=== PATIENT | male | born 1980 ===

== ENCOUNTER 2019-12-29 05:22 | Inpatient (IN) | payer OTHER ==
[2019-12-26 15:17] VITALS: BMI 23.5
[2019-12-29] MEDS ORDERED: HEPARIN NA (PORCINE) 5,000 UNITS/ML 1ML VIAL ONE (13:13)
[2019-12-29] MEDS ORDERED: BUPIVACAINE LIPOSOME/PF (EXPAREL) 266 MG/20 ML VIAL ONE (13:13)
[2019-12-29] MEDS ORDERED: BUPIVACAINE HCL/PF 0.25% (2.5MG/ML) 10 ML VIAL ONE (13:14)
[2019-12-29] MEDS ORDERED: THROMBIN (BOVINE) 5,000 UNIT VIAL TP ONE ×3 (13:14→16:13)
[2019-12-29] MEDS ORDERED: BENZOIN/ALOE VERA/STORAX/TOLU 58 ML BOTTLE ONE (13:14)
[2019-12-29] MEDS ORDERED: morphine SULFATE/PF 0.5 MG/ML (2cc Syringe - QUVA) ONE (13:38)
[2019-12-29] MEDS ORDERED: SUCCINYLCHOLINE CHLORIDE 200 MG/10 ML SYRINGE ONE (13:39)
[2019-12-29] MEDS ORDERED: MIDAZOLAM HCL 2 MG/2 ML SINGLE DOSE VIAL ONE (14:24)
[2019-12-29] MEDS ORDERED: fentaNYL CITRATE 250 MCG/5 ML VIAL ONE ×3 (14:46→18:24)
[2019-12-29] MEDS ORDERED: VANCOMYCIN 1,000 MG VIAL (RESTRICTED TO ID ONLY) IVPB ONE (15:00)
[2019-12-29] MEDS ORDERED: ceFAZolin SODIUM 1 GM VIAL IVPB ONE ×2 (15:00→17:40)
[2019-12-29] MEDS ORDERED: PROPOFOL 20 ML ONE ×11 (15:06)
[2019-12-29] MEDS ORDERED: ceFAZolin SODIUM 1 GM VIAL ONE ×3 (15:17→17:42)
[2019-12-29] MEDS ORDERED: ONDANSETRON 4 MG/2 ML VIAL ONE (15:18)
[2019-12-29] MEDS ORDERED: VANCOMYCIN 1,000 MG VIAL (RESTRICTED TO ID ONLY) ONE ×2 (15:18)
[2019-12-29] MEDS ORDERED: DEXAMETHASONE SOD PHOSPHATE 4 MG/1 ML VIAL ONE ×3 (15:18)
[2019-12-29] MEDS ORDERED: TRANEXAMIC ACID 1000 MG/10 ML VIAL ONE ×2 (15:18)
[2019-12-29] MEDS ORDERED: KETOROLAC TROMETHAMINE 30 MG/1 ML VIAL ONE (15:18)
[2019-12-29] MEDS ORDERED: NEOSTIGMINE METHYLSULFATE 0.5 MG/1 ML - 10 ML MDV ONE (16:30)
[2019-12-29] MEDS ORDERED: GLYCOPYRROLATE 0.2 MG/1 ML VIAL ONE ×2 (16:30)
--- NOTE | 2019-12-29 17:51 | PN ---
Progress Note (short form) - Note Progress Note: 39M s/p L4-S1 laminectomies, L4-L5 PLIF, & L5-S1 PLIF, L4-S1 posterior instrumented spinal fusion POD #0. -Admit to ICU post-op. -Pain control: NO NSAID's; patient received pre-op intrathecal Duramorph & intra-op paraspinal muscle block w/Exparel & marcaine; OK to use TRICK RODEO RIDER if needed; transition to oral analgesia post-op. -DVT PPx: -Mechanical only: NANY's, SCD's. -Chemical: None. -Incentive spirometry q15 min. -NPO until flatus. -Franco care; d/c when ambulating. -Ancef post-op x 3 doses. -PT/OT/Rehab, OOB. -WBAT B/L LE. -No bending, lifting (>5 lbs), or twisting for 9-12 months. -Care per ICU & medical hospitalist teams. -Discharge planning: Gypsy Hernandez preferred if patient needs rehab; f/u 7-10 days after rehab (or hospital) discharge at [facility] [place] [facility]; call for appointment; . -Will follow. Krishna Kebede MD (Orthopaedic Surgery).
--- NOTE | 2019-12-29 17:53 | OP ---
Operative Note - Note: Operative Date: 12/29/19 Pre-Operative Diagnosis: 1. 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 2. L4-L5 spondylolisthesis (Grade 1 anterolisthesis). 3. L4-S1 spinal stenosis with associated neurogenic claudication. 4. L4-S1 axial instability with associated myofascial pain complex and lumbosacral enthesopathy Operation: 1. L4 laminectomy & bilateral inferior facetectomies. 2. L5 laminectomy & bilateral 0superior and inferior facetectomies. 3. S1 laminectomy & bilateral superior facetectomies. 4. L4-L5 discectomy, PLIF, and posterolateral arthrodesis. 5. L5-S1 discectomy, PLIF, and posterolateral arthrodesis. 6. Insertion intervertebral cage/biomechanical device L4-L5. 7. Insertion intervertebral cage/biomechanical device L5-S1. 8. Reduction of spinal deformity. 9. L4-S1 posterior instrumentation. 10. Bone autograft (morselized). 11. Bone allograft (morselized). 12. Bone marrow aspirate concentrate autograft. 13. Complex wound closure. 14. Fluoroscopy Implants: Cages: RTI Fortilink Tetrafuse. L4-L5 13mm. L5-S1 11mm. Screws: 6.5x45mm x 6 Surgeon: Krishna Kebede Director Compliance: El Kebede Anesthesiologist/PCT: Hoang Bennett Anesthesia: General Specimens Removed: L4-L5, L5-S1 discs Estimated Blood Loss (mls): 1,000 Drains & Tubes with Location: 1 x deep HemoVac & 1 x superficial HemoVac Blood Volume Replaced (mls): 375 (Cell Saver) Fluid Volume Replaced (mls): 2,700 (Crystalloid) Operative Report Dictated: Yes
[2019-12-29] MEDS ORDERED: BUPIVACAINE HCL 0.25% 125 MG/50 ML VIAL NR ONE (18:10)
[2019-12-29] MEDS ORDERED: BUPIVACAINE LIPOSOME/PF (EXPAREL) 266 MG/20 ML VIAL NR ONE (18:10)
[2019-12-29] MEDS ORDERED: ONDANSETRON 4 MG/2 ML VIAL IVPUSH PRN ×2 (19:01→19:03)
[2019-12-29] MEDS ORDERED: PROMETHAZINE HCL 25 MG/1 ML VIAL IVPUSH PRN (19:01)
[2019-12-29] MEDS ORDERED: oxyCODONE HCL 20 MG SUSTAINED ACTING TABLET PO PRN (19:02)
[2019-12-29] MEDS ORDERED: oxyCODONE HCL 5 MG TABLET PO PRN (19:03)
[2019-12-29] MEDS ORDERED: BSS (NA/CA/MG/K) BALANCED SALT SOLUTION OPHTH SOLN 15 ML BOTTLE ONE (19:53)
[2019-12-29] MEDS: LACTATED RINGERS SOLUTION 1,000 ML IV SCH (20:00)
[2019-12-29] MEDS: ACETAMINOPHEN 1000 MG/100 ML VIAL (NON FORMULARY) IVPB SCH (20:30)
[2019-12-29] MEDS ORDERED: ACETAMINOPHEN INJECTION 100 ML IVPB ONE (20:46)
[2019-12-29] MEDS: diazePAM 5 MG TABLET PO PRN (21:22)
--- NOTE | 2019-12-29 22:47 | CONSULT ---
Consultation: REQUESTING PROVIDER: CONSULT REQUEST: We have been asked to medically evaluate this patient for (specify). HISTORY OF PRESENT ILLNESS: 39 yo male with pmh of right sided sciatica and anxiety presents to ICU post op Day 0 from l4-s1 Laminectomies, L4-L5 PLIF, and L5-S1 posterior instumented spin al fusion. Pt post surgery only complaining of slight back pain but no chest pain, shortness of breath, weakness or numbness in extremities. NO overt blood coming out of surgical site or drain. No gas or bowel movements passed yet. PMH: anxiety, sciatica PSH: Right knee arthroscope, l4-s1 Laminectomies, L4-L5 PLIF, and L5-S1 posterior instumented spinal fusion Meds: oxycodone 20mg QD, diazepam 10mg QD PRN Allergies: fish containing food Social: 15 pack history; denies drugs and alcohol use PCP: Does not have PCP REVIEW OF SYSTEMS: GENERAL/CONSTITUTIONAL: No fever or chills. No weakness. HEAD, EYES, EARS, NOSE AND THROAT: Eye irritation. No ear pain or discharge. No sore throat. CARDIOVASCULAR: No chest pain or shortness of breath RESPIRATORY: No cough, wheezing, or hemoptysis. GASTROINTESTINAL: No nausea, vomiting, diarrhea or constipation. GENITOURINARY: No dysuria, frequency, or change in urination. MUSCULOSKELETAL: Slight back pain SKIN: No rash NEUROLOGIC: No headache, vertigo, loss of consciousness, or change in strength/sensation. PHYSICAL EXAMINATION Vital Signs - 24 hr 12/29/19 12/29/19 12/29/19 11:01 19:00 19:15 Temperature 97.1 F L 98.6 F Pulse Rate 71 76 75 Respiratory 16 16 18 Rate Blood Pressure 128/82 137/89 114/85 O2 Sat by Pulse 99 100 100 Oximetry (%) 12/29/19 12/29/19 12/29/19 19:30 19:45 20:00 Temperature Pulse Rate 81 78 73 Respiratory 16 18 16 Rate Blood Pressure 123/79 125/72 125/72 O2 Sat by Pulse 100 100 100 Oximetry (%) 12/29/19 12/29/19 12/29/19 20:15 20:30 20:45 Temperature 98 F Pulse Rate 76 76 74 Respiratory 16 16 16 Rate Blood Pressure 130/84 120/76 122/78 O2 Sat by Pulse 98 98 100 Oximetry (%) 12/29/19 22:25 Temperature 98 F Pulse Rate 55 L Respiratory 16 Rate Blood Pressure 111/80 O2 Sat by Pulse 100 Oximetry (%) GENERAL: Awake, alert, and fully oriented, in no acute distress HEAD: No signs of trauma, normocephalic, atraumatic EYES: PERRLA, EOMI, sclera anicteric, conjunctiva clear ENT: Auricles normal inspection, hearing grossly normal, nares patent with nasal canula placement, oropharynx clear without exudates. Moist mucosa NECK: Normal ROM, supple, no lymphadenopathy, JVD, or masses LUNGS: No distress, speaks full sentences, clear to auscultation bilaterally HEART: Regular rate and rhythm, normal S1 and S2, no murmurs, rubs or gallops, peripheral pulses normal and equal bilaterally. ABDOMEN: Soft, nontender, normoactive bowel sounds. No guarding, no rebound. No masses EXTREMITIES : Normal inspection, Normal range of motion, no edema. No clubbing or cyanosis. 2+ Pulses in bilateral upper and lower ext. NEUROLOGICAL: Cranial nerves II through XII intact. Sensation equal in upper and lower ext. 5/5 muscle strength in upper ext. 4/5 muscle strength in hip flexors. 5/5 in hip extensors. SKIN: Warm, Dry, normal turgor, no rashes or lesions noted Laboratory Results - last 24 hr 12/29/19 12/29/19 10:08 13:58 Blood Type A POSITIVE A POSITIVE Antibody Screen Negative Negative Active Medications Generic Name Dose Route Start Last Admin Trade Name Freq PRN Reason Stop Dose Admin Acetaminophen 1,000 mg 12/30/19 02:00 12/29/19 20:30 Ofirmev Injection - IVPB 12/30/19 18:01 1,000 mg Q8H ANDRIY Administration Diazepam 10 mg 12/29/19 19:02 12/29/19 21:22 Valium - PO 10 mg Q8H PRN Administration MUSCLE SPASMS Fentanyl 50 mcg 12/29/19 19:01 12/29/19 19:20 Sublimaze Injection - IVPUSH 50 mcg [id number] PRN Administration PAIN-PACU ORDER X 4 DOSES ONLY Lactated Ringer's 1,000 mls @ 125 mls/hr 12/29/19 19:15 12/29/19 20:00 Lactated Ringers Solution IV 125 mls/hr ASDIR ANDRIY Administration Cefazolin Sodium 1 gm in 50 mls @ 100 mls/hr 12/29/19 23:00 Ancef 1 Gm Premixed Ivpb - IVPB 12/30/19 11:29 Q6H ANDRIY Ondansetron HCl 4 mg 12/29/19 19:03 Zofran Injection IVPUSH Q6H PRN NAUSEA AND/OR VOMITING Oxycodone HCl 20 mg 12/29/19 19:02 Oxycontin - PO BID PRN PAIN Oxycodone HCl 5 mg 12/29/19 19:03 Roxicodone - PO Q4H PRN PAIN LEVEL 1-5 Oxycodone HCl 10 mg 12/29/19 19:03 Roxicodone - PO Q4H PRN PAIN LEVEL 6-10 Promethazine HCl 12.5 mg 12/29/19 19:01 Phenergan Injection - IVPUSH Q6H PRN NAUSEA-FOR RESCUE AFTER 15 MIN ASSESSMENT/PLAN: Dispo: We will continue to follow the patient. Thank you for this consultative opportunity. 39 yo male post op day 0 from L4-S1 Laminectomies, L4-L5 PLIF, and L5-S1 posterior instumented spinal fusion. Neuro - l4-s1 Laminectomies, L4-L5 PLIF, and L5-S1 posterior instumented spinal fusion - anxiety - pain management: No NSAIDS, received intratehecal duramorph and intra-op paraspinal muscle block w/ exparel and marcaine; transitioned to oral analgesia as per surgical team. Will cont monitoring pain - Pt on per shift change neuro checks per surgical team. Pt currrently neurovascularly intact post surgery. Will cont to monitor - For anxiety pt takes diazepam 10mg at night to help sleep will give if need be Cardiac - Pt BP stable will cont to monitor Resp - pt saturating well on 2L NC will cont to monitor to keep SpO2>95% -Incentive spirometry every 15 min GI: - Pt NPO until flatus will cont to monitor currently no flatus - [facility]- will monitor I/Os - Will d/c when ambulatory Ext - WBAT - no bending lifting >5lbs or twisting for 9-12 months -DVT PPx: -Mechanical only: NANY's, SCD's. -Chemical: None. Visit type - Emergency Visit Emergency Visit: No - New Patient This patient is new to me today: Yes Date on this admission: 12/29/19 - Critical Care Critical Care patient: Yes Total Critical Care Time (in minutes): 36 Critical Care Statement: The care of this patient involved high complexity decision making to prevent further life threatening deterioration of the patient's condition and/or to evaluate & treat vital organ system(s) failure or risk of failure. ATTENDING PHYSICIAN STATEMENT I saw and evaluated the patient. I reviewed the resident's note and discussed the case with the resident. I agree with the resident's findings and plan as documented. SUBJECTIVE: OBJECTIVE: ASSESSMENT AND PLAN:
[2019-12-29] MEDS: CEFAZOLIN 1 GM/D5W 1 GM/50 ML BAG IVPB SCH (22:49)
[2019-12-29] MEDS ORDERED: CEFAZOLIN 1 GM in DEXTROSE 5%-WATER - 50 ML IVPB SCH (23:00)
[2019-12-30] MEDS: ACETAMINOPHEN 1000 MG/100 ML VIAL (NON FORMULARY) IVPB SCH ×3 (01:21→18:21)
[2019-12-30] MEDS: CEFAZOLIN 1 GM/D5W 1 GM/50 ML BAG IVPB SCH ×2 (04:04→11:07)
[2019-12-30 06:19] LABS: HEMATOCRIT 39.1 % (35.4-49); HEMOGLOBIN 13.1 GM/dL (11.7-16.9); MCHC 33.6 g/dl (32.0-35.9); MEAN CELL VOLUME 83.2 fl (80-96); RBC 4.69 M/mm3 (4.00-5.60); RDW 13.3 % (11.9-15.9); WHITE BLOOD COUNT 15.1 K/mm3 (4.0-10.0)
[2019-12-30 06:22] LABS: BLOOD UREA NITROGEN 10.9 mg/dL (7-18); CREATININE 0.9 mg/dL (0.55-1.3); POTASSIUM 4.5 mmol/L (3.5-5.1)
[2019-12-30 06:48] LABS: MAGNESIUM 1.6 mg/dL (1.8-2.4); PHOSPHOROUS 4.1 mg/dL (2.5-4.9)
[2019-12-30] MEDS ORDERED: MAGNESIUM SULF 50% (8.12 MEQ/2 ML-1 GM VIAL) IVPB ONE (07:36)
--- NOTE | 2019-12-30 07:38 | OP ---
DATE OF OPERATION: DATE OF DICTATION: 12/29/2019 SURGEON: Krishna Kebede MD PROCESSING MANAGER: El Kebede MD PREOPERATIVE DIAGNOSIS: Spinal stenosis due to disk prolapse at L4-L5, L5-S1, with associated kyphosis and segmental instability. POSTOPERATIVE DIAGNOSIS: Spinal stenosis due to disk prolapse at L4-L5, L5-S1, with associated kyphosis and segmental instability. OPERATION PERFORMED: 1. L3 bilateral laminectomies and facetectomies. (33122-65-76) 2. L4 bilateral laminectomies and facetectomies. (01302-48-15) 3. L5 bilateral laminectomies and facetectomies. (73887-90-23) 4. S1 bilateral laminectomies and facetectomies. (97321-06-02) 5. L3-L4 posterior lumbar interbody fusion (PLIF) & posterior/lateral arthrodesis. (83046-35) 6. L4-L5 posterior lumbar interbody fusion (PLIF) & posterior/lateral arthrodesis. (08159-95) 7. L5-S1 posterior lumbar interbody fusion (PLIF) & posterior/lateral arthrodesis. (02586-44) 8. L3-L4 insertion biomechanical device/interbody cage. (77665) 9. L4-L5 insertion biomechanical device/interbody cage. (94628) 10. L5-S1 insertion biomechanical device/interbody cage. (28028) 11. L3-S1 bilateral posterior segmental instrumentation. (67583-35-39, technically challenging) 12. Deformity correction; shinto of lordosis. (58180) 13. Morselized bone autograft. (94700) 14. Morselized bone allograft. (27955) 15. Bone marrow aspiration for bone grafting; autograft. (56972) 16. Complex wound closure, 4 layers, 20cm. (66565 x 3) 17. Fluoroscopy. (39378-64) ANESTHESIA: General. ANTIBIOTICS GIVEN: Ancef 2 g, 1 g vancomycin preoperative; 1 g Kefzol given intraoperatively at the time of instrumentation. BLOOD LOSS: Approximately 800 mL, 300 mL Cell Saver given back. INDICATION: Intractable right-sided L5-S1 radiculopathy with associated segment instability of L4, L5, S1, failed conservative treatment. OPERATION DETAILS: Patient correctly identified, brought into the operating room. Lumbar spine was prepped, draped in a routine manner with Betadine scrub solution, wiped off with alcohol and DuraPrep applied. Imaging was available for intraoperative evaluation. Timeout was called. A window drape was applied over the lumbar spine. A preoperative dose of Duramorph was given by the anesthesia team, (i.e., spinal anesthetic approach), and Exparel was given into the muscle both left- and right-hand side at the end of the procedure intraoperatively. In a prone position, all bony points were padded, eyes were protected. The position of the pelvis was extended to as much as we could possibly do to augment his corrective alignment for the deformity of kyphosis at the lumbar spine. Midline incision utilized. The exposure from the tip of the spinous process of L3 to the tip of the spinous process of S2. For clarity purposes, the left mobile segment I am calling L5 on S1. A separate ostial dissection was utilized, exposing the spinous process of the lamina over the facet joints out to the tip of the transverse process with the muscle retracted laterally, the interspinous space packed with sponges to create an adequate space for bone graft later. Hemostasis was achieved as best we could. TXA was instilled into the patient following incision because of the ooze and bleeding accordingly. A repeat dose of tranexamic acid was given at the end of the procedure. Verification of the level was with Jay placement at the interspinous processes of what we call L4-L5. The appropriate dissection then ensued. A full laminectomy of L4, L5 and partial S1 performed. The theca was constricted and stenosed. The stenosis was freed of all the elements, and intraoperative neural improvement of the right side at L5-S1 was reported. The dissection included longitudinal osteotomies splitting the pars interarticularis and the inferior facet at each level at L4 and L5 to expose the S1 facet, and this with retraction of the theca enabled easy resection of the superior facets at this level, thus completing the superior facetectomy of L4-L5. The theca was then gently retracted from right to left. The cages were seated from the right-hand side, as the original pain was on the right-hand side. The nerve roots were clearly identified and found to be completely free both left- and right-hand side through the exiting foramina. The theca retraction enabled easy access to the disks of L4-L5 and L5-S1, bipolar diathermy enabled us to control all epidural bleeding, giving clear visualization of the disks. An elliptical annulectomy was performed at each level, and each disk was shaved using the precision instrumentation. Shaving at L4-L5 was to size 12, and shaving at L5-S1 was to size 11. Serrated curets ensured that all disk material was removed. The chu facilitated fragmentation of the disk; this was completely removed using pituitary rongeurs, right to endplate bleeding bone. Once this had been performed, the bone that had been harvested from the posterior elements was milled in a [employer] mill and packed into the interbody space at L4-L5 and L5-S1, thus completing the anterior bone grafting of L4-L5 and L5-S1. To enable and maintain interbody disk height space to reduce the deformity, Fortilink cages were inserted from the right-hand side at L4-L5 to size 13, that is press-fitted into position as was at L5-S1, where an 11-mm shaver was utilized, press-fitting this appropriately. The wounds were thoroughly lavaged throughout the procedure. No complications in insertion of the cages. The dura remained sealed. Through the open wound but through a different approach, that is through the posterior thoracodorsal fascia, a Jamshidi needle was passed onto the posterior ilium, tapped gently into the bone bed and 60 mL of bone marrow was aspirated, spun down for the CD34 cells, this together with PRP material was mixed with fibrillar allograft and mixed with the remaining autograft bone to provide a complete composite of compliant auto allograft with stem cells, using mesenchymal stem cells. The pedicle screw instrumentation was then performed using biplane fluoroscopy and anatomical guidelines. The pedicles of L4, L5, S1 were identified, 4.5 drill into each pedicle. This brought about and visualized on lateral fluoroscopic x-ray excellent positioning of all screws. These were 6 x 45 mm precision instrumentation screws. Each screw was tested, well above the safe parameter protocol numbers, that is well above 10 mA. In fact, on the left there was above 20, and on the right L5-S1 were 16 and L4 was at 20. Once the screws had been seated and realigned, the tulips realigned, 65 mm rods were contoured using the moran device; this also facilitated correction of the deformity. This was placed into the tulips both left- and right-hand side and the appropriate locking caps inserted. This provided a solid posterior instrumentation of L4, L5, S1. Once this had been performed, the muscle was gently retracted. All sponges removed. The lateral x-ray revealed excellent seating of the implants as did the AP x- ray. The bone grafting and posterolateral arthrodesis L4, L5, S1 left- and right-hand side, was completed. The bone was packed into the intertransverse plane. The wounds were thoroughly lavaged. Muscle was appropriate debrided and trimmed. The closure was in 4 layers, thus completing a complex wound closure of approximately 20 cm. The closure was muscle 1 Vicryl, fascia 1 Vicryl, subcutaneous 1 and 2-0 Vicryl, skin 3-0 Monocryl with Steri-Strips. Drainage 1-inch Hemovac, a 10-Indonesian 1 deep and 1 superficial inserted, this because of the gentle ooze throughout the procedure. Operation went extremely well. No complications. For appropriate nursing in the ICU. MD MALIK Callahan/[id number] MTDD
[2019-12-30 07:44] LABS: MEAN PLT VOLUME 9.7 fl (7.5-11.1); PLATELET COUNT 141 K/MM3 (134-434)
[2019-12-30] MEDS ORDERED: MAGNESIUM SULF 50% (8.12 MEQ/2 ML-1 GM VIAL) ONE (07:53)
[2019-12-30] MEDS: oxyCODONE HCL 5 MG TABLET PO PRN ×3 (09:45→21:12)
[2019-12-30] MEDS: MUPIROCIN 2% TOPICAL OINTMENT FOR DECOLONIZATION NS SCH ×2 (09:49→21:13)
--- NOTE | 2019-12-30 10:49 | PN ---
Teaching Attending Note Name of Resident: Sanjiv Ponce ATTENDING PHYSICIAN STATEMENT I saw and evaluated the patient. I reviewed the resident's note and discussed the case with the resident. I agree with the resident's findings and plan as documented. SUBJECTIVE: Pt seen and examined in the ICU. Pain relatively controlled. No nausea/vomiting. No flatus yet. Wants to get OOB. OBJECTIVE: Vital Signs Period Temp Pulse Resp BP Sys/Sánchez Pulse Ox Last 24 Hr 97.1 F-98.6 F 55-81 9-18 100-137/68-89 98-100 Intake & Output 12/27/19 12/28/19 12/29/19 12/30/19 23:59 23:59 23:59 23:59 Intake Total 3475 1180 Output Total 1500 1300 Balance 1974 - Gen: NAD at rest Heart: RRR Lung: decreased breath sounds at the bases Abd: soft, nontender Ext: no edema CBC, BMP 12/30/19 05:15 12/30/19 05:15 Active Medications Acetaminophen (Ofirmev Injection -) 1,000 mg IVPB Q8H [facility] Stop: 12/30/19 18:01 Last Admin: 12/30/19 01:21 Dose: 1,000 mg Documented by: Chlorhexidine Gluconate (Hibiclens For Decolonization -) 1 applic TP HS [facility] Diazepam (Valium -) 10 mg PO Q8H PRN PRN Reason: MUSCLE SPASMS Last Admin: 12/29/19 21:22 Dose: 10 mg Documented by: Fentanyl (Sublimaze Injection -) 50 mcg IVPUSH [id number] PRN PRN Reason: PAIN-PACU ORDER X 4 DOSES ONLY Last Admin: 12/29/19 19:20 Dose: 50 mcg Documented by: Lactated Ringer's (Lactated Ringers Solution) 1,000 mls @ 125 mls/hr IV ASDIR [facility] Last Admin: 12/29/19 20:00 Dose: 125 mls/hr Documented by: Cefazolin Sodium (Ancef 1 Gm Premixed Ivpb -) 1 gm in 50 mls @ 100 mls/hr IVPB Q6H [facility] Stop: 12/30/19 11:29 Last Admin: 12/30/19 04:04 Dose: 100 mls/hr Documented by: Mupirocin (Bactroban Ointment (For Decolonization) -) 1 applic NS BID ANDRIY Stop: 01/04/20 09:59 Last Admin: 12/30/19 09:49 Dose: 1 applic Documented by: Ondansetron HCl (Zofran Injection) 4 mg IVPUSH Q6H PRN PRN Reason: NAUSEA AND/OR VOMITING Oxycodone HCl (Oxycontin -) 20 mg PO BID PRN PRN Reason: PAIN Oxycodone HCl (Roxicodone -) 5 mg PO Q4H PRN PRN Reason: PAIN LEVEL 1-5 Oxycodone HCl (Roxicodone -) 10 mg PO Q4H PRN PRN Reason: PAIN LEVEL 6-10 Last Admin: 12/30/19 09:45 Dose: 10 mg Documented by: Promethazine HCl (Phenergan Injection -) 12.5 mg IVPUSH Q6H PRN PRN Reason: NAUSEA-FOR RESCUE AFTER 15 MIN ASSESSMENT AND PLAN: Lumbar Spinal Stenosis with Radiculopathy and Neurogenic Claudication s/pL4 laminectomy & bilateral inferior facetectomies/L5 laminectomy & bilateral superior and inferior facetectomies/S1 laminectomy & bilateral superior facetectomies/L4-L5 discectomy, PLIF, and posterolateral arthrodesis/L5-S1 discectomy, PLIF, and posterolateral arthrodesis/Insertion intervertebral cage/biomechanical device L4-L5/Insertion intervertebral cage/biomechanical device L5-S1 - pain control - incentive spirometry - PO/activity/pratt per surgery - DVT prophylaxis
--- NOTE | 2019-12-30 12:32 | PN ---
Physical Exam: SUBJECTIVE: Patient seen and examined. No overnight events. Has not passed flatus. Pain is controlled with medications. Patient is anxious. OBJECTIVE: Vital Signs Period Temp Pulse Resp BP Sys/Sánchez Pulse Ox Last 24 Hr 98 F-98.6 F 55-81 9-18 100-137/68-89 98-100 GENERAL: Awake, alert, and fully oriented, anxious HEENT: head NC, AT, PERRL, MMM LUNGS: Breath sounds equal, clear to auscultation bilaterally. No wheezes, and no crackles. No accessory muscle use. HEART: Regular rate and rhythm, normal S1 and S2 without murmur, rub or gallop. ABDOMEN: obese Soft, nontender, not distended, normoactive bowel sounds, no guarding, no rebound EXTREMITIES: 2+ DP/TP pulses, warm, well-perfused. No cyanosis. No clubbing. Cap refill <2 seconds. No peripheral edema. b/l UE & LE strength 5/5, sensation intact NEUROLOGICAL: Cranial nerves II through XII intact. Normal speech. gait not assessed PSYCHIATRIC: Cooperative. Good eye contact. Appropriate mood and affect. Laboratory Results - last 24 hr 12/29/19 12/30/19 12/30/19 13:58 05:15 05:15 WBC 15.1 H RBC 4.69 Hgb 13.1 Hct 39.1 MCV 83.2 MCH 28.0 MCHC 33.6 RDW 13.3 Plt Count 141 MPV 9.7 Platelet Comment No clumping noted Sodium 140 Potassium 4.5 Chloride 106 Carbon Dioxide 30 Anion Gap 4 L BUN 10.9 Creatinine 0.9 Est GFR (CKD-EPI)AfAm 125.13 Est GFR (CKD-EPI)NonAf 107.97 Random Glucose 127 H Calcium 8.0 L Phosphorus 4.1 Magnesium 1.6 L Blood Type A POSITIVE Antibody Screen Negative Active Medications Generic Name Dose Route Start Last Admin Trade Name Freq PRN Reason Stop Dose Admin Acetaminophen 1,000 mg 12/30/19 02:00 12/30/19 11:07 Ofirmev Injection - IVPB 12/30/19 18:01 1,000 mg Q8H ANDRIY Administration Chlorhexidine Gluconate 1 applic 12/30/19 22:00 Hibiclens For Decolonization - TP HS ANDRIY Diazepam 10 mg 12/29/19 19:02 12/29/19 21:22 Valium - PO 10 mg Q8H PRN Administration MUSCLE SPASMS Fentanyl 50 mcg 12/29/19 19:01 12/29/19 19:20 Sublimaze Injection - IVPUSH 50 mcg [id number] PRN Administration PAIN-PACU ORDER X 4 DOSES ONLY Lactated Ringer's 1,000 mls @ 125 mls/hr 12/29/19 19:15 12/29/19 20:00 Lactated Ringers Solution IV 125 mls/hr ASDIR ANDRIY Administration Mupirocin 1 applic 12/30/19 10:00 12/30/19 09:49 Bactroban Ointment (For Decolonization) - NS 01/04/20 09:59 1 applic BID ANDRIY Administration Ondansetron HCl 4 mg 12/29/19 19:03 Zofran Injection IVPUSH Q6H PRN NAUSEA AND/OR VOMITING Oxycodone HCl 20 mg 12/29/19 19:02 Oxycontin - PO BID PRN PAIN Oxycodone HCl 5 mg 12/29/19 19:03 Roxicodone - PO Q4H PRN PAIN LEVEL 1-5 Oxycodone HCl 10 mg 12/29/19 19:03 12/30/19 09:45 Roxicodone - PO 10 mg Q4H PRN Administration PAIN LEVEL 6-10 Promethazine HCl 12.5 mg 12/29/19 19:01 Phenergan Injection - IVPUSH Q6H PRN NAUSEA-FOR RESCUE AFTER 15 MIN ASSESSMENT/PLAN: 39 YO PMH anxiety and R-sided sciatca presents to ICU for observation POD#1 for L4-S1 Laminectomies, L4-L5 PLIF, and L5-S1 posterior instrumented spinal fusion. Neuro #L4-S1 Laminectomies, L4-L5 PLIF, and L5-S1 posterior instrumented spinal fusion. -per Ortho note, NO NSAID's; oxycodone for pain # anxiety -diazepam 10 mg PRN Cardio - no active issues -will continue to monitor PULM -keep SpO2>95% -Encourage Incentive spirometry GI -NPO until flatus occurs -no flatus yet per patient - Pratt care in place - dc pratt once pt is ambulating -3475 I's/ 1500 O's/ 1975 Balance ID s/p Ancef 3 doses Ext - WBAT - no bending lifting >5lbs or twisting for 9-12 months DVT PPX -Mechanical only: NANY's, SCD's. -Chemical: None. Visit type - Emergency Visit Emergency Visit: Yes ED Registration Date: 12/29/19 Care time: The patient presented to the Emergency Department on the above date and was hospitalized for further evaluation of their emergent condition. - New Patient This patient is new to me today: No - Critical Care Critical Care patient: No ATTENDING PHYSICIAN STATEMENT I saw and evaluated the patient. I reviewed the resident's note and discussed the case with the resident. I agree with the resident's findings and plan as documented. SUBJECTIVE: OBJECTIVE: ASSESSMENT AND PLAN:
--- NOTE | 2019-12-30 13:56 | PN ---
Progress Note (short form) - Note Progress Note: Anesthesiologist post op note POD#1, S/P L4-S1 laminectomy , PLIF under GETA. Pat seen and examined. VSS. Pain well controlled, PO and iv meds by primary team. No apparent post anesthesia complications.
--- NOTE | 2019-12-30 17:35 | PN ---
Progress Note (short form) - Note Progress Note: POD#1 In ICU Pain well controlled Sat in chair No leg pain CVS Stable RESP AE bilaterally ABD SOft No B/S as yet Wound dressing intact and dry Drains insitu Neuro Motor Fully intact Sensation Fully intact Labs WCC elevated 14 ASSESS POst L4/5/S1 laminectomy fusion Doing well PLAN Continue pain MX PT start mobilizing FWBAT Will pull drains tomorrow D/C planning
[2019-12-30] MEDS: diazePAM 5 MG TABLET PO PRN (18:20)
[2019-12-30] MEDS: CHLORHEXIDINE GLUCONATE 4% CLEANSER FOR DECOLONIZATION TP SCH (21:14)
[2019-12-30] MEDS: LACTATED RINGERS SOLUTION 1,000 ML IV SCH (21:27)
[2019-12-31] MEDS: oxyCODONE HCL 5 MG TABLET PO PRN ×6 (03:43→23:54)
[2019-12-31] MEDS ORDERED: ACETAMINOPHEN 1000 MG/100 ML VIAL (NON FORMULARY) IVPB ONE (04:01)
[2019-12-31] MEDS: LACTATED RINGERS SOLUTION 1,000 ML IV SCH ×2 (06:26→14:26)
[2019-12-31 06:41] LABS: HEMATOCRIT 39.1 % (35.4-49); MCH 27.7 pg (25.7-33.7); MCHC 33.4 g/dl (32.0-35.9); MEAN CELL VOLUME 82.9 fl (80-96); PLATELET COUNT 124 K/MM3 (134-434); RBC 4.72 M/mm3 (4.00-5.60); RDW 13.2 % (11.9-15.9); WHITE BLOOD COUNT 14.4 K/mm3 (4.0-10.0)
[2019-12-31 07:09] LABS: ALBUMIN 3.2 g/dl (3.4-5.0); BILIRUBIN,TOTAL 0.6 mg/dL (0.2-1); BLOOD UREA NITROGEN 9.6 mg/dL (7-18); CALCIUM 8.2 mg/dL (8.5-10.1); CREATININE 0.7 mg/dL (0.55-1.3); PHOSPHOROUS 2.9 mg/dL (2.5-4.9); POTASSIUM 3.8 mmol/L (3.5-5.1); TOT PROT 5.9 g/dl (6.4-8.2)
[2019-12-31] MEDS ORDERED: PT OWN MED DRAWER 7, Y5N ONE ×2 (09:53→11:49)
--- NOTE | 2019-12-31 11:43 | PN ---
Teaching Attending Note Name of Resident: Sanjiv Ponce ATTENDING PHYSICIAN STATEMENT I saw and evaluated the patient. I reviewed the resident's note and discussed the case with the resident. I agree with the resident's findings and plan as documented. SUBJECTIVE: Pt seen and examined in the ICU. Pain relatively controlled. No nausea/vomiting. No flatus yet. Walked with PT. OBJECTIVE: Vital Signs Period Temp Pulse Resp BP Sys/Sánchez Pulse Ox Last 24 Hr 97.6 F-99.5 F 64-83 16-27 105-123/65-90 96-100 Intake & Output 12/28/19 12/29/19 12/30/19 12/31/19 23:59 23:59 23:59 23:59 Intake Total 3475 2580 Output Total 1500 4850 20 Balance 1974 Gen: NAD at rest Heart: RRR Lung: decreased breath sounds at the bases Abd: soft, nontender Ext: no edema CBC, BMP 12/31/19 05:15 12/31/19 05:15 Active Medications Chlorhexidine Gluconate (Hibiclens For Decolonization -) 1 applic TP HS [facility] Last Admin: 12/30/19 21:14 Dose: 1 applic Documented by: Diazepam (Valium -) 10 mg PO Q8H PRN PRN Reason: MUSCLE SPASMS Last Admin: 12/30/19 18:20 Dose: 10 mg Documented by: Fentanyl (Sublimaze Injection -) 50 mcg IVPUSH [id number] PRN PRN Reason: PAIN-PACU ORDER X 4 DOSES ONLY Last Admin: 12/29/19 19:20 Dose: 50 mcg Documented by: Lactated Ringer's (Lactated Ringers Solution) 1,000 mls @ 125 mls/hr IV ASDIR [facility] Last Admin: 12/31/19 06:26 Dose: 125 mls/hr Documented by: Mupirocin (Bactroban Ointment (For Decolonization) -) 1 applic NS BID [facility] Stop: 01/04/20 09:59 Last Admin: 12/30/19 21:13 Dose: 1 applic Documented by: Nicotine (Nicoderm Patch -) 21 mg TD DAILY [facility] Ondansetron HCl (Zofran Injection) 4 mg IVPUSH Q6H PRN PRN Reason: NAUSEA AND/OR VOMITING Oxycodone HCl (Oxycontin -) 20 mg PO BID PRN PRN Reason: PAIN Oxycodone HCl (Roxicodone -) 5 mg PO Q4H PRN PRN Reason: PAIN LEVEL 1-5 Last Admin: 12/31/19 00:26 Dose: 5 mg Documented by: Oxycodone HCl (Roxicodone -) 10 mg PO Q4H PRN PRN Reason: PAIN LEVEL 6-10 Last Admin: 12/31/19 08:14 Dose: 10 mg Documented by: Promethazine HCl (Phenergan Injection -) 12.5 mg IVPUSH Q6H PRN PRN Reason: NAUSEA-FOR RESCUE AFTER 15 MIN ASSESSMENT AND PLAN: Lumbar Spinal Stenosis with Radiculopathy and Neurogenic Claudication s/pL4 laminectomy & bilateral inferior facetectomies/L5 laminectomy & bilateral superior and inferior facetectomies/S1 laminectomy & bilateral superior facet ectomies/L4-L5 discectomy, PLIF, and posterolateral arthrodesis/L5-S1 discectomy, PLIF, and posterolateral arthrodesis/Insertion intervertebral cage/biomechanical device L4-L5/Insertion intervertebral cage/biomechanical device L5-S1 - pain control - incentive spirometry - PO/activity per surgery - DVT prophylaxis
--- NOTE | 2019-12-31 11:43 | PN ---
Physical Exam: SUBJECTIVE: Patient seen and examined. 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 Overnight, patient had pain, which improved with ofiramev. 20 cc's in Davol drain in past 2 days; was just drained today. Has not passed flatus or had BM. Denies N/V. Patient is anxious. OBJECTIVE: Vital Signs Period Temp Pulse Resp BP Sys/Sánchez Pulse Ox Last 24 Hr 97.6 F-99.5 F 64-83 16-27 105-123/65-90 96-100 GENERAL: Awake, alert, and fully oriented, anxious HEENT: head NC, AT, PERRL, MMM LUNGS: Breath sounds equal, clear to auscultation bilaterally. No wheezes, and no crackles. No accessory muscle use. HEART: Regular rate and rhythm, normal S1 and S2 without murmur, rub or gallop. ABDOMEN: obese Soft, nontender, not distended, normoactive bowel sounds, no guarding, no rebound EXTREMITIES: 2+ DP/TP pulses, warm, well-perfused. No cyanosis. No clubbing. Cap refill <2 seconds. No peripheral edema. b/l UE & LE strength 5/5, sensation intact NEUROLOGICAL: Cranial nerves II through XII intact. Normal speech. gait not assessed PSYCHIATRIC: Cooperative. Good eye contact. Appropriate mood and affect. Laboratory Results - last 24 hr 12/31/19 12/31/19 05:15 05:15 WBC 14.4 H RBC 4.72 Hgb 13.0 Hct 39.1 MCV 82.9 MCH 27.7 MCHC 33.4 RDW 13.2 Plt Count 124 L MPV 10.0 Sodium 139 Potassium 3.8 Chloride 104 Carbon Dioxide 28 Anion Gap 7 L BUN 9.6 Creatinine 0.7 Est GFR (CKD-EPI)AfAm 138.75 Est GFR (CKD-EPI)NonAf 119.71 Random Glucose 110 H Calcium 8.2 L Phosphorus 2.9 Magnesium 2.0 Total Bilirubin 0.6 AST 80 H ALT 37 Alkaline Phosphatase 79 Total Protein 5.9 L Albumin 3.2 L Active Medications Generic Name Dose Route Start Last Admin Trade Name Freq PRN Reason Stop Dose Admin Chlorhexidine Gluconate 1 applic 12/30/19 22:00 12/30/19 21:14 Hibiclens For Decolonization - TP 1 applic HS ANDRIY Administration Diazepam 10 mg 12/29/19 19:02 12/30/19 18:20 Valium - PO 10 mg Q8H PRN Administration MUSCLE SPASMS Fentanyl 50 mcg 12/29/19 19:01 12/29/19 19:20 Sublimaze Injection - IVPUSH 50 mcg [id number] PRN Administration PAIN-PACU ORDER X 4 DOSES ONLY Lactated Ringer's 1,000 mls @ 125 mls/hr 12/29/19 19:15 12/31/19 06:26 Lactated Ringers Solution IV 125 mls/hr ASDIR ANDRIY Administration Mupirocin 1 applic 12/30/19 10:00 12/30/19 21:13 Bactroban Ointment (For Decolonization) - NS 01/04/20 09:59 1 applic BID ANDRIY Administration Nicotine 21 mg 12/31/19 10:45 Nicoderm Patch - TD DAILY ANDRIY Ondansetron HCl 4 mg 12/29/19 19:03 Zofran Injection IVPUSH Q6H PRN NAUSEA AND/OR VOMITING Oxycodone HCl 20 mg 12/29/19 19:02 Oxycontin - PO BID PRN PAIN Oxycodone HCl 5 mg 12/29/19 19:03 12/31/19 00:26 Roxicodone - PO 5 mg Q4H PRN Administration PAIN LEVEL 1-5 Oxycodone HCl 10 mg 12/29/19 19:03 12/31/19 08:14 Roxicodone - PO 10 mg Q4H PRN Administration PAIN LEVEL 6-10 Promethazine HCl 12.5 mg 12/29/19 19:01 Phenergan Injection - IVPUSH Q6H PRN NAUSEA-FOR RESCUE AFTER 15 MIN ASSESSMENT/PLAN: 39 YO PMH anxiety and R-sided sciatca presents to ICU for observation POD#2 for L4-S1 Laminectomies, L4-L5 PLIF, and L5-S1 posterior instrumented spinal fusion. Neuro #L4-S1 Laminectomies, L4-L5 PLIF, and L5-S1 posterior instrumented spinal fusion. -per Ortho note, NO NSAID's; oxycodone for pain # anxiety -diazepam 10 mg PRN Cardio - no active issues -will continue to monitor PULM -keep SpO2>95% -Encourage Incentive spirometry GI -NPO until flatus occurs -no flatus yet per patient Renal -BUN/Cr 9.6/0.7 - 2580 I's/ 4850 O's/ -2270 Balance Heme #Leukocytosis -WBC trended down from 15.1 to 14.4. -likely reactive #thrombocytopenia: platelets decreased from 141 to 124. will continue to monitor with CBC ID s/p Ancef 3 doses Ext - WBAT - no bending lifting >5lbs or twisting for 9-12 months DVT PPX -Mechanical only: NANY's, SCD's. -Chemical: None. Visit type - Emergency Visit Emergency Visit: Yes ED Registration Date: 12/29/19 Care time: The patient presented to the Emergency Department on the above date and was hospitalized for further evaluation of their emergent condition. - New Patient This patient is new to me today: No - Critical Care Critical Care patient: No ATTENDING PHYSICIAN STATEMENT I saw and evaluated the patient. I reviewed the resident's note and discussed the case with the resident. I agree with the resident's findings and plan as documented. SUBJECTIVE: OBJECTIVE: ASSESSMENT AND PLAN:
[2019-12-31] MEDS: NICOTINE 21 MG/24 HOURS TOPICAL PATCH TD SCH (11:51)
[2019-12-31] MEDS: MUPIROCIN 2% TOPICAL OINTMENT FOR DECOLONIZATION NS SCH ×2 (11:57→21:09)
--- NOTE | 2019-12-31 15:27 | PN ---
Progress Note (short form) - Note Progress Note: Surgery: Pt states that he is tolerating clears. No flatus. OOB and ambulated in the hallway today. No numbness or tingling to LE. Voiding without difficulty. Vital Signs Period Temp Pulse Resp BP Sys/Sánchez Pulse Ox Last 24 Hr 97.6 F-99.5 F 64-83 16-27 105-127/65-90 96-100 KERVIN: 20ml serosangrenous GEN: A&0x3, NAD Back: dressing c/d/i. operative dressing pulled back slightly to remove the drain and reinforced with tegaderm. Neuro: 5/5 dorsi/plantar/EHL flexion b/l CBC, BMP /16/ 05:15 16/ 05:15 A/p: 39 yo male s/p L4-S1 disectomy/laminectomy with PLIF and Cage placement. POD#2 continue sips of clears/stool softners OOB and ambulate with PT/assistance Pain managment with oral medications Drain removed today DVT ppx with SCDs/ambulation Transfer to the floor Sanding tylenol 650mg Q6h x 6 doses D/w Dr. Kebede
[2019-12-31] MEDS ORDERED: LACTATED RINGERS SOLUTION 1,000 ML IV SCH (15:33)
--- NOTE | 2019-12-31 15:37 | HOSP ---
Physical Examination Vital Signs: Vital Signs Temperature 98.9 F 12/31/19 11:52 Pulse Rate 82 12/31/19 14:00 Respiratory Rate 18 12/31/19 14:00 Blood Pressure 117/82 12/31/19 14:00 O2 Sat by Pulse Oximetry (%) 100 12/31/19 08:56 Labs: CBC, BMP 12/31/19 05:15 12/31/19 05:15 Hospitalist Encounter Assessment: Patient is a 39 YO PMH anxiety and R-sided sciatca presents to ICU for observation POD#2 for L4-S1 Laminectomies, L4-L5 PLIF, and L5-S1 posterior instrumented spinal fusion. His preoperative diagnosis is 1. 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 2. L4- L5 spondylolisthesis (Grade 1 anterolisthesis). 3. L4-S1 spinal stenosis with associated neurogenic claudication. 4. L4-S1 axial instability with associated myofascial pain complex and lumbosacral enthesopathy. Patient is on oxycodone for pain. Now s/p 3 doses of ancef. Per ortho note, NO NSAID's were given. Patient walked 100 feet on POD#1, and then she walked 200 feet on POD#2. Nausea/vomiting was managed with ondansetron. As per ortho note, no bending lifting >5lbs or twisting for 9-12 months. For DVT prophylaxis, Mechanical only (NANY's, SCD's) per ortho note. Patient is stable for transfer to [facility] surg
--- NOTE | 2019-12-31 15:47 | HOSP ---
Subjective - Review of Symptoms Events since last encounter: Pt was admitted for repair of lumbar stenosis (L4-S1 laminectomy & facetectomies, L4-L5/L5-S1 discectomies, fusion, and cage insertion with bone allograft and marrow autograft) and monitored in ICU for pain control and neuro checks. Pt is active with PT, pain is controlled with PO meds, and drains were removed. He is able to be monitored on med/surg. A&Ox3, in no acute distress CTAB RRR, no murmur moves all 4 extremities Physical Examination Vital Signs: Vital Signs Temperature 98.9 F 12/31/19 11:52 Pulse Rate 82 12/31/19 14:00 Respiratory Rate 18 12/31/19 14:00 Blood Pressure 117/82 12/31/19 14:00 O2 Sat by Pulse Oximetry (%) 100 12/31/19 08:56 Labs: CBC, BMP 12/31/19 05:15 12/31/19 05:15 Visit type - Emergency Visit Emergency Visit: Yes ED Registration Date: 12/29/19 Care time: The patient presented to the Emergency Department on the above date and was hospitalized for further evaluation of their emergent condition. - New Patient This patient is new to me today: Yes Date on this admission: 12/31/19 - Critical Care Critical Care patient: No
[2019-12-31] MEDS: ACETAMINOPHEN 325 MG TABLET (FP) PO SCH ×2 (15:49→21:06)
[2019-12-31] MEDS ORDERED: SIMETHICONE 40 MG/0.6 ML BOTTLE PO PRN (16:33)
--- NOTE | 2019-12-31 18:02 | PATH ---
Surgical Pathology Report Patient Name: ENRIKE SCALES Med. Rec. #: [id number] /Age/Gender: 1980 (Age: 39) / M Account: [id number] [place] [facility] [place] CLIENT ARCHITECT Taken: 12/29/2019 Received: 12/30/2019 Reported: 12/31/2019 Physicians: Krishna Kebede M.D. Specimen(s) Received DISC Clinical History Spinal stenosis, lumbar Final Diagnosis DISC, L4-5, L5-S1, POSTERIOR LUMBAR INTERBODY FUSION: BENIGN INTERVERTEBRAL DISC TISSUE AND BONE. Electronically Signed Ida Aponte M.D. Gross Description Received in formalin labeled "disc" are multiple irregular fragments of white-pimentel fibrocartilaginous tissue measuring 4 x 2 x 0.6 cm in aggregate. Staff Development Coordinator Rn sections are submitted in one cassette. MLSZ/12/30/2019 sanml/12/30/2019
[2019-12-31] MEDS: DOCUSATE SODIUM 100 MG CAPSULE (FP) PO SCH (21:06)
[2019-12-31] MEDS: CHLORHEXIDINE GLUCONATE 4% CLEANSER FOR DECOLONIZATION TP SCH (21:10)
--- NOTE | 2019-12-31 22:21 | PN ---
Teaching Attending Note Name of Resident: Latisha Nguyen ATTENDING PHYSICIAN STATEMENT I saw and evaluated the patient. I reviewed the resident's note and discussed the case with the resident. I agree with the resident's findings and plan as documented. 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 OBJECTIVE: GA calm, AAox3, NAD HEENT NC/AT, neck supple, dry MM Chest CTAB, no crackles CVS s1, S2+, RRR Abd SOft, NT, ND, BS+ Ext moving all 4 extremities Vital Signs - 24 hr 12/30/19 12/31/19 12/31/19 23:00 00:00 01:00 Temperature Pulse Rate 74 69 82 Respiratory 19 24 H 22 H Rate Blood Pressure 115/80 119/83 118/83 O2 Sat by Pulse 98 99 99 Oximetry (%) 12/31/19 12/31/19 12/31/19 02:00 03:00 04:00 Temperature 98.2 F Pulse Rate 77 70 64 Respiratory 23 H 24 H 25 H Rate Blood Pressure 110/76 112/85 111/65 O2 Sat by Pulse 98 98 97 Oximetry (%) 12/31/19 12/31/19 12/31/19 05:00 06:00 08:00 Temperature 98.3 F Pulse Rate 69 68 74 Respiratory 23 H 19 18 Rate Blood Pressure 118/75 105/70 114/84 O2 Sat by Pulse 98 98 100 Oximetry (%) 12/31/19 12/31/19 12/31/19 08:56 10:00 10:36 Temperature 99.5 F Pulse Rate 76 Respiratory 18 Rate Blood Pressure 109/79 123/90 O2 Sat by Pulse 100 Oximetry (%) 12/31/19 12/31/19 12/31/19 11:52 13:00 13:26 Temperature 98.9 F Pulse Rate 72 82 Respiratory 17 18 Rate Blood Pressure 123/86 127/83 O2 Sat by Pulse Oximetry (%) 12/31/19 12/31/19 12/31/19 14:00 15:52 17:00 Temperature 99.6 F Pulse Rate 82 84 92 H Respiratory 18 18 18 Rate Blood Pressure 117/82 123/85 116/77 O2 Sat by Pulse Oximetry (%) 12/31/19 19:00 Temperature Pulse Rate 82 Respiratory 18 Rate Blood Pressure 120/80 O2 Sat by Pulse Oximetry (%) Laboratory Results - last 24 hr 12/31/19 12/31/19 05:15 05:15 WBC 14.4 H RBC 4.72 Hgb 13.0 Hct 39.1 MCV 82.9 MCH 27.7 MCHC 33.4 RDW 13.2 Plt Count 124 L MPV 10.0 Sodium 139 Potassium 3.8 Chloride 104 Carbon Dioxide 28 Anion Gap 7 L BUN 9.6 Creatinine 0.7 Est GFR (CKD-EPI)AfAm 138.75 Est GFR (CKD-EPI)NonAf 119.71 Random Glucose 110 H Calcium 8.2 L Phosphorus 2.9 Magnesium 2.0 Total Bilirubin 0.6 AST 80 H ALT 37 Alkaline Phosphatase 79 Total Protein 5.9 L Albumin 3.2 L Home Medications Medication Instructions Recorded Diazepam 10 mg PO ASDIR 12/26/19 oxyCODONE SR [Oxycontin] 20 mg PO BID PRN 12/26/19 Current Medications Generic Name Dose Route Start Last Admin Trade Name Freq PRN Reason Stop Dose Admin Acetaminophen 650 mg 12/31/19 15:45 12/31/19 21:06 Tylenol - PO 01/01/20 21:46 650 mg Q6H ANDRIY Administration Chlorhexidine Gluconate 1 applic 12/30/19 22:00 12/31/19 21:10 Hibiclens For Decolonization - TP 1 applic HS ANDRIY Administration Diazepam 10 mg 12/29/19 19:02 12/30/19 18:20 Valium - PO 10 mg Q8H PRN Administration MUSCLE SPASMS Docusate Sodium 100 mg 12/31/19 22:00 12/31/19 21:06 Colace - PO 100 mg TID ANDRIY Administration Lactated Ringer's 1,000 mls @ 75 mls/hr 12/31/19 15:33 12/31/19 15:45 Lactated Ringers Solution IV 01/01/20 08:00 75 mls/hr ASDIR ANDRIY Administration Mupirocin 1 applic 12/30/19 10:00 12/31/19 21:09 Bactroban Ointment (For Decolonization) - NS 01/04/20 09:59 Not Given BID ANDRIY Nicotine 21 mg 12/31/19 10:45 12/31/19 11:51 Nicoderm Patch - TD 21 mg DAILY ANDRIY Administration Ondansetron HCl 4 mg 12/29/19 19:03 Zofran Injection IVPUSH Q6H PRN NAUSEA AND/OR VOMITING Oxycodone HCl 20 mg 12/29/19 19:02 Oxycontin - PO BID PRN PAIN Oxycodone HCl 5 mg 12/29/19 19:03 12/31/19 00:26 Roxicodone - PO 5 mg Q4H PRN Administration PAIN LEVEL 1-5 Oxycodone HCl 10 mg 12/29/19 19:03 12/31/19 19:53 Roxicodone - PO 10 mg Q4H PRN Administration PAIN LEVEL 6-10 Promethazine HCl 12.5 mg 12/29/19 19:01 Phenergan Injection - IVPUSH Q6H PRN NAUSEA-FOR RESCUE AFTER 15 MIN Simethicone 40 mg 12/31/19 16:33 Mylicon Liquid - PO QID PRN GAS ASSESSMENT AND PLAN: 39 M S/p L4-S1 laminectomy/revision Anxiety disorder Chronic sciatica Nicotine dependence Plan: Doing well, hold IVF, advance diet when patient has bowel movement Cont. Valium for anxiety disorder Tylenol PRN for pain, Oxycodone for severe breakthrough pain Supplement aggressive bowel regimen Monitor on floors DVT ppx: per NSG team
[2019-12-31] MEDS: diazePAM 5 MG TABLET PO PRN (23:55)
[2020-01-01] MEDS: ACETAMINOPHEN 325 MG TABLET (FP) PO SCH ×3 (04:41→16:18)
[2020-01-01] MEDS: oxyCODONE HCL 5 MG TABLET PO PRN ×3 (04:41→13:26)
[2020-01-01] MEDS: DOCUSATE SODIUM 100 MG CAPSULE (FP) PO SCH ×2 (06:39→14:34)
[2020-01-01 07:24] LABS: BASO % 0.5 % (0-2.0); EOS % 0.8 % (0-4.5); HEMATOCRIT 38.2 % (35.4-49); MCH 28.3 pg (25.7-33.7); MEAN CELL VOLUME 83.2 fl (80-96); MONO % 11.8 % (3.8-10.2); NEUT % 71.9 % (42.8-82.8); PLATELET COUNT 135 K/MM3 (134-434); RBC 4.59 M/mm3 (4.00-5.60); RDW 13.5 % (11.9-15.9); WHITE BLOOD COUNT 10.7 K/mm3 (4.0-10.0)
[2020-01-01 07:52] LABS: ALBUMIN 3.1 g/dl (3.4-5.0); BLOOD UREA NITROGEN 9.1 mg/dL (7-18); CALCIUM 8.3 mg/dL (8.5-10.1); CREATININE 0.7 mg/dL (0.55-1.3); PHOSPHOROUS 2.6 mg/dL (2.5-4.9); POTASSIUM 3.8 mmol/L (3.5-5.1); TOT PROT 6.3 g/dl (6.4-8.2)
[2020-01-01] MEDS: NICOTINE 21 MG/24 HOURS TOPICAL PATCH TD SCH (09:05)
[2020-01-01 13:07] VITALS: PULSE 106
[2020-01-01] MEDS: MUPIROCIN 2% TOPICAL OINTMENT FOR DECOLONIZATION NS SCH (13:37)
--- NOTE | 2020-01-01 14:57 | PN ---
Teaching Attending Note Name of Resident: Wendi Brannon ATTENDING PHYSICIAN STATEMENT I saw and evaluated the patient. I reviewed the resident's note and discussed the case with the resident. I agree with the resident's findings and plan as documented. SUBJECTIVE: No fever or chills. minimal pain in back. No numbness tingling, weakness in legs . walked in hallway with walker and independently. OBJECTIVE: NAD, awake, alert Cv: RRR Lungs: CTAB Ext : No edema or erythema on upper or lower extremities neuro : strength 5/5 in lower extremities proximally and distally. Knee jerk 2+ b/l . a dressing on lowert T and L spine area with normal skin around it ASSESSMENT AND PLAN: 39 y/o man with h/o sciatica and back pain who was admitted and had L spine sx. 1- h/o spinal stenosis s/p L4-S1 surgical procedure. - had BM Neuro exam in LE with no focal weakness walked well with PT pain controlled drain was removed yesterday spoke with Ava from Surgery regardign dressign change case was d/w Dr. Kebede who agrees with dc Recs for keeping dressing intact and clean till f/u with Dr. Kebede in [address] Kebede to prescribe any necessary pain meds will prescribe walker and arrange for VNS for PT
[2020-01-01 15:32] VITALS: BP 123/82; TEMP 99
--- NOTE | 2020-01-01 15:45 | DS ---
Physical Exam: SUBJECTIVE: Patient seen and examined at bedside. No acute events reported overnight. Patient endorses flatus but has not had a bowel movement yet. OBJECTIVE: Vital Signs Period Temp Pulse Resp BP Sys/Sánchez Pulse Ox Last 24 Hr 98.9 F-99.6 F 80-106 14-24 101-123/77-91 94-100 PHYSICAL EXAM GENERAL: AAOx3, in no acute distress. Multiple tattoos on neck and chest HEENT: NCAT, PERRLA, EOMI, sclera anicteric, conjunctiva clear, oropharynx clear w/o exudates. MMM. NECK: Normal ROM, supple, no lymphadenopathy, JVD, or masses LUNGS: CTABL no wheezes/ rhonchi/ rales. No distress, speaks in full sentences. No increased work of breathing. HEART: RRR, normal S1 S2, no M/R/G, peripheral pulses 2+ and equal b/l ABDOMEN: Soft, NTND, + BS. No guarding or rebound. No hepatomegaly or splenomegaly. MSK: ROM WNL EXTREMITIES: Normal inspection. No peripheral edema. No clubbing or cyanosis. NEUROLOGICAL: CN II-XII intact. Normal speech, normal gait, no focal sensorimotor deficits. SKIN: Warm, Dry, normal turgor, no rashes or lesions noted. Dressing on T and L spine LABS Laboratory Results - last 24 hr CBC, BMP 01/01/20 06:02 01/01/20 06:02 01/01/20 01/01/20 06:02 06:02 WBC 10.7 H RBC 4.59 Hgb 13.0 Hct 38.2 MCV 83.2 MCH 28.3 MCHC 34.0 RDW 13.5 Plt Count 135 MPV 10.0 Absolute Neuts (auto) 7.7 Neutrophils % 71.9 Lymphocytes % 15.0 Monocytes % 11.8 H Eosinophils % 0.8 Basophils % 0.5 Nucleated RBC % 0 Sodium 140 Potassium 3.8 Chloride 105 Carbon Dioxide 29 Anion Gap 6 L BUN 9.1 Creatinine 0.7 Est GFR (CKD-EPI)AfAm 138.75 Est GFR (CKD-EPI)NonAf 119.71 Random Glucose 99 Calcium 8.3 L Phosphorus 2.6 Magnesium 2.0 Total Bilirubin 1.0 AST 58 H ALT 31 Alkaline Phosphatase 78 Total Protein 6.3 L Albumin 3.1 L HOSPITAL COURSE: Patient is a 39 YO PMH anxiety and R-sided sciatca presents to ICU for observation POD#2 for L4-S1 Laminectomies, L4-L5 PLIF, and L5-S1 posterior instrumented spinal fusion. His preoperative diagnosis is 1. 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 2. L4- L5 spondylolisthesis (Grade 1 anterolisthesis). 3. L4-S1 spinal stenosis with associated neurogenic claudication. 4. L4-S1 axial instability with associated myofascial pain complex and lumbosacral enthesopathy. Patient was on oxycodone for pain and s/p 3 doses of ancef. Per ortho note, NO NSAID's were given. Patient walked 100 feet on POD#1, and then he walked 200 feet on POD#2. Nausea/vomiting was managed with ondansetron. As per ortho note, no bending lifting >5lbs or twisting for 9-12 months. Patient was discharged on 12/31 with outpatient ortho followup. Date of Admission:12/29/19 12/29/19-flouroscopy- 12 images have been obtained during posterior fusion of L4- S1 with disc space replacements. 01/01/20- AP and lateral views reveal lower lumbar spine laminectomies with posterior fusion from L4-S1 with disc space replacements. There is a normal lordosis. There is some vertebral wedging. Date of Discharge: 01/01/20 Minutes to complete discharge: 36 Discharge Summary Problems reviewed: Yes Reason For Visit: SPINAL STENOSIS LUMBAR Condition: Stable - Instructions Diet, Activity, Other Instructions: Your visit: You were admitted to the hospital for back surgery. Medications changes: -Continue to take all other home medications as prescribed. -Avoid NSAID medications (aspirin, ibuprofen, naproxen, meloxicam etc.) - do not apply any lidocaine patch on your back Follow up: - Please follow-up with your Orthopedic Surgeon, Dr. Kebede in 1 week. [place] office; call for appointment; . - Visit with your Primary Care Provider in 2 weeks. If you do not have a primary care provider you may make an appointment with Dr. Brannon at the [facility] clinic located at [facility] [facility] ([phone]). Additional Instructions: -You are being discharged to your home. -Please keep the dressing intact and dry until you see the orthopedic surgeon. -Use a walker while ambulating. You will continue to do physical therapy with visiting nursing services at your home. -Please return to the Emergency Department if you experience worsening pain, fevers, chills, shortness of breath, or chest pain, or if you experience any worsening, new or concerning symptoms. - no heavy lifting ( > 5 pounds ) or twisting for 9-12 months . Referrals: Kyle Hatfield MD [Staff Physician] - 1 Week Krishna Kebede MD [Staff Physician] - 1 Week Disposition: HOME - Home Medications Comprehensive Discharge Medication List: Ambulatory Orders Diazepam 10 mg PO PRN PRN 12/26/19 This patient is new to me today: Yes Date on this admission: 01/01/20 Emergency Visit: No Critical Care patient: No - Discharge Referral Referred to [facility] No ATTENDING PHYSICIAN STATEMENT I saw and evaluated the patient. I reviewed the resident's note and discussed the case with the resident. I agree with the resident's findings and plan as documented. SUBJECTIVE: OBJECTIVE: ASSESSMENT AND PLAN:
== END 2020-01-01 16:21 | disposition home or self-care (01) | DRG 303 ==
LOC: J2C 05:22 → JICU 21:18
PROVIDERS: ADMIT Orthopaedic Surgery Orthopaedic Surgery of the Spine; ATTEND Internal Medicine
PROC: 0SG1071 Fusion of 2 or more Lumbar Vertebral Joints with Autologous Tissue Substitute, Posterior Approach, Posterior Column, Open Approach (ICD-10-PCS; 2019-12-29)
PROC: 01NB0ZZ Release Lumbar Nerve, Open Approach (ICD-10-PCS; 2019-12-29)
PROC: 0SB20ZZ Excision of Lumbar Vertebral Disc, Open Approach (ICD-10-PCS; 2019-12-29)
PROC: 0QS004Z Reposition Lumbar Vertebra with Internal Fixation Device, Open Approach (ICD-10-PCS; 2019-12-29)
PROC: 0SG30AJ Fusion of Lumbosacral Joint with Interbody Fusion Device, Posterior Approach, Anterior Column, Open Approach (ICD-10-PCS; 2019-12-29)
PROC: 0SG3071 Fusion of Lumbosacral Joint with Autologous Tissue Substitute, Posterior Approach, Posterior Column, Open Approach (ICD-10-PCS; 2019-12-29)
PROC: 0SB40ZZ Excision of Lumbosacral Disc, Open Approach (ICD-10-PCS; 2019-12-29)
PROC: 07DR0ZZ Extraction of Iliac Bone Marrow, Open Approach (ICD-10-PCS; 2019-12-29)
PROC: B01BZZZ Fluoroscopy of Spinal Cord (ICD-10-PCS; 2019-12-29)
PROC: 4A1004G Monitoring of Central Nervous Electrical Activity, Intraoperative, Open Approach (ICD-10-PCS; 2019-12-29)
PROC: 0SG00AJ Fusion of Lumbar Vertebral Joint with Interbody Fusion Device, Posterior Approach, Anterior Column, Open Approach (ICD-10-PCS; principal; 2019-12-29 12:00)
DX: M40.299 Other kyphosis, site unspecified (principal); M48.062 Spinal stenosis, lumbar region with neurogenic claudication; M54.16 Radiculopathy, lumbar region; M48.07 Spinal stenosis, lumbosacral region; M51.27 Other intervertebral disc displacement, lumbosacral region; D72.829 Elevated white blood cell count, unspecified; D69.6 Thrombocytopenia, unspecified; F41.9 Anxiety disorder, unspecified; F17.210 Nicotine dependence, cigarettes, uncomplicated
CPT/HCPCS: 36415; 72100-TC-FY; 76000-TC-FY; 80048; 80053; 83735; 84100; 85025; 85027; 86850; 86900; 86901; 88304-TC; 94760; 97116-GP; 97162-GP; J0131; J1644

== ENCOUNTER 2020-01-12 13:55 | Emergency (ER) | payer OTHER ==
[2020-01-12 14:07] VITALS: TEMP 98.9; BMI 22.1
--- NOTE | 2020-01-12 14:09 | PDOC ---
Rapid Medical Evaluation Time Seen by Provider: 01/12/20 14:04 Medical Evaluation: Allergies Allergy/AdvReac Type Severity Reaction Status Date / Time Fish Containing Products Allergy Verified 01/12/20 14:04 No Known Drug Allergies Allergy Verified 01/12/20 14:04 01/12/20 14:04 Pt presents for evaluation of night sweats and l sided chest pain for the past two weeks. Chest pain worse with deep breathing. Denies fevers and shortness of breath. S/P spinal fusion surgery 01/01/2020 Exam: RRR, no acute respiratory distress Orders: Labs, EKG, CXR Pt to proceed to the ER for further evaluation Discharge Disposition - Diagnosis Chest pain Qualifiers: Chest pain type: chest pain on breathing Qualified Code(s): R07.1 - Chest pain on breathing; R07.81 - Pleurodynia - Referrals - Patient Instructions - Post Discharge Activity
--- NOTE | 2020-01-12 14:15 | PDOC ---
History of Present Illness - General Chief Complaint: Chest Pain Stated Complaint: CHEST PAIN Time Seen by Provider: 01/12/20 14:04 Past History - Medical History Allergies/Adverse Reactions: Allergies Allergy/AdvReac Type Severity Reaction Status Date / Time Fish Containing Products Allergy Verified 01/12/20 14:04 No Known Drug Allergies Allergy Verified 01/12/20 14:04 Home Medications: Ambulatory Orders Diazepam 10 mg PO PRN PRN 12/26/19 Anemia: No Asthma: No Cancer: No Cardiac Disorders: No CVA: No COPD: No CHF: No Dementia: No Diabetes: No GI Disorders: No Disorders: Yes (KIDNEY STONES - NO SX) HTN: No Hypercholesterolemia: No Liver Disease: No Seizures: No Thyroid Disease: No - Surgical History Abdominal Surgery: No Appendectomy: No Cardiac Surgery: No Cholecystectomy: No Lung Surgery: No Neurologic Surgery: No Orthopedic Surgery: Yes (RT ARTHROSCOPY) - Immunization History Immunization Up to Date: Yes - Psycho-Social/Smoking History Smoking History: Current every day smoker Have you smoked in the past 12 months: Yes Number of Cigarettes Smoked Daily: 5 Information on smoking cessation initiated: No 'Breaking Loose' booklet given: 12/26/19 - Substance Abuse Hx (Audit-C & DAST Scrn) How often the patient has a drink containing alcohol: Never Score: In Men: 4 or > Positive; In Women: 3 or > Positive: 0 Screen Result (Pos requires Nsg. Audit-10AR): Negative In the last yr the pt used illegal drug/Rx for NonMed reason: No Score: Yes response is considered Positive: 0 Screen Result (Positive result requires Nsg. DAST-10): Negative *Physical Exam - Vital Signs Last Vital Signs Temp Pulse Resp BP Pulse Ox 98.9 F 99 H 18 122/79 100 01/12/20 14:04 01/12/20 14:04 01/12/20 14:04 01/12/20 14:04 01/12/20 14:04 ED Treatment Course - LABORATORY CBC & Chemistry Diagram: 01/12/20 16:00 01/12/20 16:00 Medical Decision Making - Medical Decision Making 01/12/20 14:15 HPI: 39yo M hx anxiety, R-sided sciatica, and s/p L4-S1 Laminectomies, L4-L5 PLIF, and L5-S1 posterior instrumented spinal fusion on 01/01/20 presents from home for nightmares with associated night sweats (drenched like bucket of water) and constant L lateral chest point stabbing type pain nonpleuritic nonexertional nothing makes better/worse since surgery, all began immediately following surgery. Pt followed up as instructed with surgery and was told symptoms were not concerning. Today pt search sx on internet and became concerned for PE, called surgery who told not concerned due to lack of SOB or substernal CP. Later in the afternoon pt walking to mailbox felt sudden onset substernal pleuritic CP and SOB, intermittent since then, so pt became nervous and came here. Denies F/C, cough, headache, vision changes, covid or sick contacts, purulence or redness or change in temperature of wound, N/T, weakness, wound pain, abdominal pain, D/C. ROS: Constitutional: Positive for night sweats, nightmares. Negative for chills, fever, fatigue. HENT: Negative for sore throat, rhinorrhea, congestion. Eyes: Negative for visual disturbance. Respiratory: Positive for shortness of breath. Negative for cough, and wheezing. Cardiovascular: Positive for chest pain. Negative for palpitations, and leg swelling. Gastrointestinal: Negative for abdominal pain, blood in stool, constipation, diarrhea, nausea, and vomiting. Genitourinary: Negative for dysuria, flank pain, and hematuria. Musculoskeletal: Negative for myalgias, back pain, and neck pain. Skin: Negative for rash. Neurological: Negative for light-headedness, dizziness, vertigo, syncope, weakness, numbness and headaches. Psychiatric/Behavioral: Negative for behavioral problems and confusion. PE: Gen: Alert, NAD, anxious-appearing. HEENT: PERRL, EOMI, MMM, NCAT. No conjunctival pallor. Sclera are non-icteric. CV: Regular rate and rhythm. No murmurs, rubs, or gallops. PULM: No resp distress. CTAB, no wheezes, rales, or rhonchi. ABD: soft, NT/ND, no rebound tenderness or guarding, no CVA tenderness. BACK: No TTP of c/t/l-spine. No step-offs or deformities. Well-healing lower back surgical excision, warm but same temp as entire back, no erythema or purulence or drainage. MSK: No bony deformities. 2+ pulses in all extremities. NEURO: AAOx3. PERRL. CN 2-12 intact. 5/5 strength in all extremities. Sensation to light touch intact in all extremities. No abnormal nystagmus. EXTREMITIES: No cyanosis. No clubbing. No edema. No calf tenderness. PSYCH: Anxious mood and normal thought pattern. SKIN: Warm and dry. Normal capillary refill. No rashes. No jaundice. MDM: 39yo M hx anxiety, R-sided sciatica, and s/p L4-S1 Laminectomies, L4-L5 PLIF, and L5-S1 posterior instrumented spinal fusion on 01/01/20 presents from home for nightmares with associated night sweats (drenched like bucket of water) and constant L lateral chest point stabbing type pain nonpleuritic nonexertional nothing makes better/worse since surgery, all began immediately following surge ry. Hemodynamically stable, afebrile, no e/o infection surgical site. Ddx: PE, ACS/SD (low HEART score), arrhythmia, MSK, PNA, anxiety, infection, metabolic derangement, anemia -labs: D-dimer elevated, no other concerning findings. -EKG: NSR, 89bpm, normal axis, normal intervals, no ST elevations or depressions, no TWIs -CTA -CXR reviewed: No acute pathology -Pain management -Dispo: pending workup and reassessment 01/12/20 19:00 CTA reviewed: no e/o PE Will discharge home with PCP f/u. Return precautions given. Pt understands all discharge instructions and all questions were answered. Discharge - Discharge Information Problems reviewed: Yes Clinical Impression/Diagnosis: Chest pain Qualifiers: Chest pain type: chest pain on breathing Qualified Code(s): R07.1 - Chest pain on breathing Condition: Stable Disposition: HOME - Admission No - Follow up/Referral - Patient Discharge Instructions Patient Printed Discharge Instructions: DI for Atypical Chest Pain Additional Instructions: You have been seen in the Emergency Department for your chest pain. Your EKG, chest X-ray, CT scan of your chest to look for PE (pulmonary embolism), and labs, including Troponin (a heart enzyme), show no signs concerning for an emergent condition such as a heart attack or pneumonia or PE. If you experience pain, you can your medication as prescribed. Follow-up with your surgeon and primary care doctor within 1 week. Return to the Emergency Department immediately if you experience chest pain, difficulty breathing, passing out, or any other new or worsening symptom. - Post Discharge Activity
--- OUTSIDE RECORDS SUMMARY | 2020-01-12 15:11 | XMS ---
:1980 Author Organization [facility] Support Name Relationship Address Phone UE, UNEMPLOYED Unavailable Unavailable Unavailable UE Unavailable Unavailable Unavailable DOREEN SCALES [address] [place] [address] UNK Unavailable Unavailable Unavailable DOREEN SCALES Spouse [address] [place] [address] Re-disclosure Warning The records that you are about to access may contain information from federally- assisted alcohol or drug abuse programs. If such information is present, then the following federally mandated warning applies: This information has been disclosed to you from records protected by federal confidentiality rules (42 CFR part 2). The federal rules prohibit you from making any further disclosure of this information unless further disclosure is expressly permitted by the written consent of the person to whom it pertains or as otherwise permitted by 42 CFR part 2. A general authorization for the release of medical or other information is NOT sufficient for this purpose. The Federal rules restrict any use of the information to criminally investigate or prosecute any alcohol or drug abuse patient.The records that you are about to access may contain highly sensitive health information, the redisclosure of which is protected by Article 27-F of the [facility] Public Health law. If you continue you may haveaccess to information: Regarding HIV / AIDS; Provided by facilities licensed or operated by the [facility] Office of Mental Health; or Provided by the [facility] Office for People With Developmental Disabilities. If such information is present, then the following [facility] mandated warning applies: This information has been disclosed to you from confidential records which are protected by state law. State law prohibits you from making any further disclosure of this information without the specific written consent of the person to whom it pertains, or as otherwise permitted by law. Any unauthorized further disclosure in violation of state law may result in a fine or senior care sentence or both. A general authorization for the release of medical or other information is NOT sufficient authorization for further disclosure. Insurance Providers Payer name Policy type Policy ID Covered Covered green party's Policy P cheri / Coverage green party ID relationship to [employer] ormation type mendez [employer] [id number] SP [id number] PENDING WC/NF [id number] SP [id number] ONLY Results ID Date Data Source [id number] 12/25/2019 09:38:00 AM EDT [facility] Name Value Range Interpretation Description Data Sup porting Code Source(s) Document(s ) SARS [facility] coronavirus 2 RNA This lab was ordered by JOSIE calloway [facility] and reported by [facility]. ID Date Data Source [id number] 08/08/2019 12:00:00 AM EDT [facility] Name Value Range Interpretation Code Description Data Betsy rce(s) Supporting Document(s ) 2019-nCoV [facility] RNA XXX LUZ+probe- Imp This lab was ordered by LOI CHAVIS [id number] and reported by [employer] Procedure
[2020-01-12 16:24] LABS: EOS % 1.4 % (0-4.5); HEMATOCRIT 35.9 % (35.4-49); HEMOGLOBIN 12.2 GM/dL (11.7-16.9); LYMPH % 19.6 % (8-40); MCHC 33.8 g/dl (32.0-35.9); MEAN CELL VOLUME 82.7 fl (80-96); MEAN PLT VOLUME 8.6 fl (7.5-11.1); MONO % 8.2 % (3.8-10.2); NEUT % 69.8 % (42.8-82.8); PLATELET COUNT 326 K/MM3 (134-434); RBC 4.35 M/mm3 (4.00-5.60); RDW 13.4 % (11.9-15.9); WHITE BLOOD COUNT 7.4 K/mm3 (4.0-10.0)
[2020-01-12 16:32] LABS: INR 1.05 (0.83-1.09); PROTHROMBIN TIME (PATIENT) 12.4 SEC (9.7-13.0)
--- NOTE | 2020-01-12 16:35 | PDOC ---
Documentation entered by Wilbur Jackson SCRIBE, acting as scribe for Angella Edwards MD. Angella Edwards MD: This documentation has been prepared by the Manuel karimi Xhesika, SCRIBE, under my direction and personally reviewed by me in its entirety. I confirm that the documentation accurately reflects all work, treatment, procedures, and medical decision making performed by me. Attending Attestation - Resident Resident Name: Quynh Franz - ED Attending Attestation I have performed the following: I have examined & evaluated the patient, The case was reviewed & discussed with the resident, I agree w/resident's findings & plan, Exceptions are as noted - HPI HPI: 01/12/20 15:28 The patient is a 39y/o M with a pmh of anxiety, R-sided sciatica, and s/p L4-S1 Laminectomies, L4-L5 PLIF, and L5-S1 posterior instrumented spinal fusion on 01/01/20 who presents to the ED for night sweats and L lateral chest pain. Pt describes his CP as constant, stabbing in nature, nonpleuritic, nonexertional, without any alleviating or aggravating factors. Pt states his symptoms began after his spinal fusion surgery. Pt also reports sudden onset substernal pleuritic CP and SOB while walking to the mailbox today. Pt googled his symptoms, became concerned, prompting his arrival to the ED. Denies fever, chills, headache, dizziness, focal weakness/numbness, abd pain, LE edema. Allergies: NKDA - Physicial Exam PE: 01/12/20 16:27 Agree with resident exam - Medical Decision Making 01/12/20 16:27 39yo M presents to the ED with CP/SOB since getting spinal surgery weeks ago. Vitals with mild tachycardia Surgical site evaluated, no evidence of infection, tenderness, or discharge DDx for CP includes PE vs ACS vs PNA vs MSK pain HS is <4 so low risk of MACE Plan: -labs -EKG -CTA -CXR -reassess Heart Score/ECG Review #1 01/12/20 16:34 Twelve-lead EKG was performed and reviewed by me. Normal sinus rhythm, rate 89. Normal axis and intervals. No ST elevations or T wave inversions Discharge - Discharge Information Clinical Impression/Diagnosis: Chest pain Qualifiers: Chest pain type: chest pain on breathing Qualified Code(s): R07.1 - Chest pain on breathing - Follow up/Referral - Patient Discharge Instructions - Post Discharge Activity
[2020-01-12 17:00] LABS: ALBUMIN 3.2 g/dl (3.4-5.0); ALK PHOS 94 U/L (45-117); ANION GAP 7 MMOL/L (8-16); BILIRUBIN,TOTAL 0.2 mg/dL (0.2-1); BLOOD UREA NITROGEN 9.5 mg/dL (7-18); CALCIUM 8.5 mg/dL (8.5-10.1); CHLORIDE 105 mmol/L (98-107); CO2 27 mmol/L (21-32); CREATININE 0.8 mg/dL (0.55-1.3); GLUCOSE,RANDOM 117 mg/dL (74-106); POTASSIUM 3.9 mmol/L (3.5-5.1); SGOT/AST 18 U/L (15-37); SGPT/ALT 29 U/L (13-61); SODIUM 140 mmol/L (136-145); TOT PROT 6.4 g/dl (6.4-8.2)
[2020-01-12] MEDS ORDERED: KETOROLAC TROMETHAMINE 30 MG/1 ML VIAL IVPUSH ONE (18:03)
[2020-01-12] MEDS ORDERED: oxyCODONE HCL 5 MG TABLET PO ONE (18:03)
[2020-01-12] MEDS ORDERED: oxyCODONE HCL 5 MG TABLET ONE (18:44)
[2020-01-12] MEDS ORDERED: KETOROLAC TROMETHAMINE 30 MG/1 ML VIAL ONE (18:44)
[2020-01-12 19:35] VITALS: BP 136/85; PULSE 89
--- NOTE | 2020-01-13 10:16 | EKG ---
Test Reason : Blood Pressure : / mmHG Vent. Rate : 089 BPM Atrial Rate : 089 BPM P-R Int : 140 ms QRS Dur : 086 ms QT Int : 352 ms P-R-T Axes : 058 027 039 degrees QTc Int : 428 ms NORMAL SINUS RHYTHM POSSIBLE LEFT ATRIAL ENLARGEMENT BORDERLINE ECG NO PREVIOUS ECGS AVAILABLE Confirmed by MD Tia, Stanton ([id number]) on 01/13/2020 10:15:26 AM Referred By: Confirmed By:Stanton Weber MD
== END 2020-01-12 19:51 | disposition home or self-care (01) ==
LOC: JER 13:55
PROC: 3E0233Z Introduction of Anti-inflammatory into Muscle, Percutaneous Approach (ICD-10-PCS; principal; 2020-01-12)
DX: R07.81 Pleurodynia (principal)
CPT/HCPCS: 36415; 71046-TC-FY; 71275-TC; 80053; 82550; 84484; 85025; 85379; 85610; 93005; 93010; 99285-25; Q9967